=== PATIENT | female | born 1975 | race Hispanic/Latino ===

== ENCOUNTER 2017-06-20 11:05 | Emergency (ER) | payer SELFPAY ==
[2017-06-20 11:12] VITALS: BMI 27.8
[2017-06-20 11:13] VITALS: BP 129/81; PULSE 77; RESP 16; TEMP 97.9; O2SAT 99
--- NOTE | 2017-06-20 12:07 | ED PDOC ---
Upper Extremity Pain/Injury Time Seen by Provider: 06/20/17 11:49 Chief Complaint (Nursing): Upper Extremity Problem/Injury Chief Complaint (Provider): right shoulder/neck pain History Per: Patient (41 y/o female here with upper back pain radiating to left shoulder. Has h/o cervical sx in past. Notes worsening of symptoms x 4 days. Patient was seen at urgent care and given prednisone/flexeril/naproxen but notes no change. 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 return to [place].) Past Medical History Reviewed: Historical Data, Nursing Documentation, Vital Signs Vital Signs: Last Vital Signs Temp 97.9 F 06/20/17 11:12 Pulse 77 06/20/17 11:12 Resp 16 06/20/17 11:12 BP 129/81 06/20/17 11:12 Pulse Ox 99 06/20/17 11:12 - Family History Family History: States: No Known Family Hx - Home Medications Home Medications: Ambulatory Orders Medication Instructions Recorded Methylprednisolone [Medrol Dose 4 mg PO DAILY #21 mg 06/20/17 Pack (21 tabs)] diaZEpam [Valium] 5 mg PO Q6 PRN #8 tab 06/20/17 oxyCODONE/Acetaminophen [Percocet 1 ea PO Q6 PRN #10 tab 06/20/17 5/325 mg Tab] - Allergies Allergies/Adverse Reactions: Allergies Allergy/AdvReac Type Severity Reaction Status Date / Time No Known Allergies Allergy Verified 06/20/17 12:03 Review of Systems ROS Statement: Except As Marked, All Systems Reviewed And Found Negative Physical Exam - Reviewed Nursing Documentation Reviewed: Yes Vital Signs Reviewed: Yes - Physical Exam Appears: Positive for: Well, Non-toxic, No Acute Distress Head Exam: Positive for: ATRAUMATIC, NORMAL INSPECTION, NORMOCEPHALIC Skin: Positive for: Normal Color, Warm, DRY Eye Exam: Positive for: EOMI, Normal appearance, PERRL ENT: Positive for: Normal ENT Inspection Neck: Positive for: Normal, Painless ROM Cardiovascular/Chest: Positive for: Regular Rate, Rhythm Respiratory: Positive for: CNT, Normal Breath Sounds Gastrointestinal/Abdominal: Positive for: Normal Exam, Bowel Sounds, Soft Back: Positive for: Normal Inspection, Other (no tenderness elicited. Patient noted burning pain subscapular region to elbow.) Extremity: Positive for: Normal ROM Neurologic/Psych: Positive for: Alert, Oriented - ECG O2 Sat by Pulse Oximetry: 99 - Progress ED Course And Treament: dilaudid 0.5 mg IM x 1 dose Disposition - Clinical Impression Clinical Impression: Radiculopathy of cervical spine - Patient ED Disposition Is Patient to be Admitted: No - Disposition Referrals: [facility] [Outside] Sotero Quigley MD [Medical Doctor] - Disposition: Routine/Home Disposition Time: 12:08 Condition: FAIR Prescriptions: diaZEpam [Valium] 5 mg PO Q6 PRN #8 tab PRN Reason: Muscle Spasm Methylprednisolone [Medrol Dose Pack (21 tabs)] 4 mg PO DAILY #21 mg oxyCODONE/Acetaminophen [Percocet 5/325 mg Tab] 1 ea PO Q6 PRN #10 tab PRN Reason: Pain, Severe (8-10) Instructions: Radiculopathy (DC) Forms: [employer] ([place]), [facility] ED School/Work Excuse
== END 2017-06-20 13:35 | disposition home or self-care (01) ==
LOC: H.ER 11:05
DX: M54.12 Radiculopathy, cervical region (principal)
CPT/HCPCS: 81025; 96372; 99283; J1170